=== PATIENT | female | born 1965 | race Caucasian/White ===

== ENCOUNTER 2017-07-03 14:26 | Inpatient (IN) | payer OTHER ==
[2017-07-03] MEDS ORDERED: IPRATROPIUM/ALBUTEROL 0.5-2.5 MG/3 ML AMPUL NEB ONE (15:52)
--- NOTE | 2017-07-03 15:53 | ER Document Report ---
ED Medical Screen (RME) - General Chief Complaint: Chest Pain Stated Complaint: CHEST PAIN Time Seen by Provider: 07/03/17 15:52 Mode of Arrival: Wheelchair Information source: Patient Notes: This is a 52-year-old female with a history of 1 pack per day smoking presents to the emergency room with several days of cough productive of brown sputum, low -grade fever, pain with cough. Patient states that her right chest hurts when she coughs. TRAVEL OUTSIDE OF THE [place] IN LAST 30 DAYS: No - Related Data Allergies/Adverse Reactions: No Known Allergies Allergy (Unverified 07/03/17 14:40) Past Medical History - Social History Chew tobacco use (# tins/day): No Frequency of alcohol use: Occasional Drug Abuse: None - Past Medical History Cardiac Medical History: Denies: Hx Coronary Artery Disease, Hx Hypertension Pulmonary Medical History: Denies: Hx Asthma Endocrine Medical History: Reports: Hx Hypothyroidism. Denies: Hx Diabetes Mellitus Type 1, Hx Diabetes Mellitus Type 2 Renal/ Medical History: Denies: Hx Peritoneal Dialysis Surgical Hx: Negative - Immunizations Hx Diphtheria, Pertussis, Tetanus Vaccination: Yes Physical Exam - Vital signs Vitals: Temp Pulse Resp BP Pulse Ox 99.6 F 80 24 H 103/55 L 94 07/03/17 14:39 07/03/17 14:39 07/03/17 14:39 07/03/17 14:39 07/03/17 14:39 Course - Vital Signs Vital signs: Temp Pulse Resp BP Pulse Ox 99.6 F 80 24 H 103/55 L 94 07/03/17 14:39 07/03/17 14:39 07/03/17 14:39 07/03/17 14:39 07/03/17 14:39
--- NOTE | 2017-07-03 16:18 | RADIOLOGY REPORT (SQ) ---
EXAM DESCRIPTION: CHEST PA/LAT COMPLETED DATE/TIME: 07/03/2017 4:11 pm REASON FOR STUDY: cough, sob COMPARISON: None. EXAM PARAMETERS: NUMBER OF VIEWS: two views TECHNIQUE: Digital Frontal and Lateral radiographic views of the chest acquired. RADIATION DOSE: NA LIMITATIONS: none FINDINGS: LUNGS AND PLEURA: No opacities, masses or pneumothorax. No pleural effusion. MEDIASTINUM AND HILAR STRUCTURES: No masses or contour abnormalities. HEART AND VASCULAR STRUCTURES: Heart normal size. No evidence for failure. BONES: No acute findings. HARDWARE: None in the chest. OTHER: No other significant finding. IMPRESSION: NO SIGNIFICANT RADIOGRAPHIC FINDING IN THE CHEST. TECHNICAL DOCUMENTATION: JOB ID: [id number] [employer]- All Rights Reserved
[2017-07-03 16:20] LABS: ABSOLUTE LYMPHOCYTES (AUTO) 1.1 10^3/uL (0.5-4.7); ABSOLUTE MONOCYTES (AUTO) 0.6 10^3/uL (0.1-1.4); BASOPHILS % (AUTO) 0.2 % (0-2); HEMATOCRIT 37.5 % (36.0-47.0); HEMOGLOBIN 13.2 g/dL (12.0-15.5); HGB HCT DIFFERENCE 2.1; LYMPHOCYTES % (AUTO) 6.7 % (13-45); MEAN CORPUSCULAR HEMOGLOBIN 32.4 pg (27.0-33.4); MEAN CORPUSCULAR HGB CONC 35.3 g/dL (32.0-36.0); MEAN CORPUSCULAR VOLUME 92 fl (80-97); MONOCYTES % (AUTO) 3.8 % (3-13); RED BLOOD COUNT 4.08 10^6/uL (3.72-5.28); RED CELL DISTRIBUTION WIDTH 13.2 % (11.5-14.0); SEGMENTED NEUTROPHILS % (AUTO) 89.3 % (42-78); WHITE BLOOD COUNT 15.7 10^3/uL (4.0-10.5)
[2017-07-03 16:45] LABS: ALANINE AMINOTRANSFERASE 25 U/L (9-52); ALBUMIN 4.5 g/dL (3.5-5.0); ALKALINE PHOSPHATASE 88 U/L (38-126); ANION GAP 11 (5-19); ASPARTATE AMINO TRANSFERASE 19 U/L (14-36); BILIRUBIN,DIRECT 0.4 mg/dL (0.0-0.4); BLOOD UREA NITROGEN 15 mg/dL (7-20); CALCIUM 10.1 mg/dL (8.4-10.2); CARBON DIOXIDE 25 mmol/L (22-30); CHLORIDE 103 mmol/L (98-107); CREATININE RESULT 0.76 mg/dL (0.52-1.25); GLUCOSE 99 mg/dL (75-110); POTASSIUM 4.2 mmol/L (3.6-5.0); SODIUM 139.4 mmol/L (137-145); TOTAL PROTEIN 7.3 g/dL (6.3-8.2)
[2017-07-03] MEDS ORDERED: AZITHROMYCIN 250 MG TABLET PO ONE (17:39)
[2017-07-03] MEDS ORDERED: ALBUTEROL SULFATE HFA (90 MCG/PUFF) 8 GM MDI (1 MDI/ER DISP) IH PRN (17:40)
[2017-07-03] MEDS ORDERED: OXYCODONE-ACETAMINOPHEN 5-325 MG TABLET PO ONE (17:40)
[2017-07-03] MEDS ORDERED: PREDNISONE 20 MG TABLET PO ONE (17:40)
[2017-07-03] MEDS ORDERED: CEFTRIAXONE 1 GM/D5W RTU 1 GM/50 ML RTUPB IV ONE (17:49)
[2017-07-03] MEDS ORDERED: AZITHROMYCIN INJ 500 MG VIAL IV ONE (17:51)
[2017-07-03] MEDS ORDERED: GUAIFENESIN 600 MG TABLET.SA PO ONE (17:51)
[2017-07-03] MEDS ORDERED: METHYLPREDNISOLONE INJ 125 MG/2 ML SDV IV ONE (17:51)
--- NOTE | 2017-07-03 17:58 | ER Document Report ---
ED General - General Chief Complaint: Chest Pain Stated Complaint: CHEST PAIN Time Seen by Provider: 07/03/17 15:52 Mode of Arrival: Wheelchair Information source: Patient Notes: This is a 52-year-old female with a history of 1 pack per day smoking for years who presents to the emergency room with cough, shortness of breath, chest pain with cough. She has have a productive cough, chills and subjective fevers. TRAVEL OUTSIDE OF THE [place] IN LAST 30 DAYS: No - HPI Onset: Last week Onset/Duration: Gradual Quality of pain: Dull Severity: Moderate Pain Level: 2 Associated symptoms: Chills, Productive cough, Fever, Nausea Exacerbated by: Movement, Coughing Relieved by: Remaining still Similar symptoms previously: Yes Recently seen / treated by doctor: No - Related Data Allergies/Adverse Reactions: No Known Allergies Allergy (Unverified 07/03/17 14:40) Home Medications: Current Home Medications Zolpidem Tartrate [Ambien 5 mg Tablet] 5 mg PO HSP PRN 07/03/17 [History] Past Medical History - General Information source: Patient - Social History Smoking Status: Current Every Day Smoker Cigarette use (# per day): Yes - 1 pack per day smoker Chew tobacco use (# tins/day): No Smoking Education Provided: Yes - Less than 5 minutes Frequency of alcohol use: Occasional Drug Abuse: None Lives with: Family Family History: Reviewed & Not Pertinent Patient has suicidal ideation: No Patient has homicidal ideation: No - Past Medical History Cardiac Medical History: Denies: Hx Coronary Artery Disease, Hx Hypertension Pulmonary Medical History: Denies: Hx Asthma Endocrine Medical History: Reports: Hx Hypothyroidism. Denies: Hx Diabetes Mellitus Type 1, Hx Diabetes Mellitus Type 2 Renal/ Medical History: Denies: Hx Peritoneal Dialysis Surgical Hx: Negative - Immunizations Hx Diphtheria, Pertussis, Tetanus Vaccination: Yes Review of Systems - Review of Systems Constitutional: Chills, Fever EENT: No symptoms reported Cardiovascular: No symptoms reported Respiratory: See HPI, Cough, Short of breath Gastrointestinal: No symptoms reported Genitourinary: No symptoms reported Female Genitourinary: No symptoms reported Musculoskeletal: See HPI Skin: No symptoms reported Hematologic/Lymphatic: No symptoms reported Neurological/Psychological: No symptoms reported Physical Exam - Vital signs Vitals: Temp Pulse Resp BP Pulse Ox 99.6 F 80 24 H 103/55 L 94 07/03/17 14:39 07/03/17 14:39 07/03/17 14:39 07/03/17 14:39 07/03/17 14:39 Notes: Physical exam: GENERAL: 52-year-old female, alert and oriented 3, appears short of breath, wheezing, she splints when she coughs (she holds her right chest wall when she coughs). HEAD: Atraumatic, normocephalic. EYES: Pupils equal round and reactive to light, extraocular movements intact, sclera anicteric, conjunctiva are normal. ENT: TMs normal, nares patent, oropharynx clear without exudates. Moist mucous membranes. NECK: Normal range of motion, supple without obvious mass or JVD. LUNGS: Wheezing bilaterally HEART: Regular rate and rhythm without murmurs, rubs or gallops. ABDOMEN: Soft, normoactive bowel sounds. No tenderness to palpation. No guarding, no rebound. No masses appreciated. EXTREMITIES: Normal range of motion, no pitting or edema. No clubbing or cyanosis. NEUROLOGICAL: Cranial nerves II through XII grossly intact. Normal speech, moving all extremities. PSYCH: Normal mood, normal affect. SKIN: Warm, Dry, normal turgor, no rashes or lesions noted. Course - Re-evaluation Re-evalutation: 07/03/17 20:07 Given the patient's clinical appearance, elevated white count, productive cough and x-ray findings I do believe she has got a right lower lobe pneumonia. I gave her a few nebulizer treatments in the ER and she had minimal relief. I think she would benefit with IV antibiotics, IV steroids, IV fluids and admission. - Vital Signs Vital signs: Temp Pulse Resp BP Pulse Ox 99.6 F 80 24 H 103/55 L 94 07/03/17 14:39 07/03/17 14:39 07/03/17 14:39 07/03/17 14:39 07/03/17 14:39 - Laboratory Result Diagrams: 07/03/17 16:02 07/03/17 16:02 Laboratory results interpreted by me: 07/03/17 16:02 WBC 15.7 H Seg Neutrophils % 89.3 H Lymphocytes % 6.7 L Absolute Neutrophils 14.0 H - Diagnostic Test Radiology reviewed: Image reviewed, Reports reviewed - Chest x-ray is read as no infiltrates by the radiologist. I think the lungs are hyperinflated consistent with COPD. I think she does have the beginnings of an infiltrate in the right lower lobe. Discharge - Discharge Clinical Impression: COPD (chronic obstructive pulmonary disease) Qualifiers: COPD type: COPD with acute exacerbation Qualified Code(s): J44.1 - Chronic obstructive pulmonary disease with (acute) exacerbation Pneumonia Qualifiers: Laterality: right Condition: Stable Disposition: ADMITTED INPATIENT Admitting Provider: Hospitalist Mesha lopes Unit Admitted: Medical Floor
[2017-07-03] MEDS ORDERED: ONDANSETRON HCL INJ/PF 4 MG/2 ML SDV IV PRN (18:09)
[2017-07-03] MEDS ORDERED: OXYCODONE-ACETAMINOPHEN 5-325 MG TABLET PO PRN (18:09)
[2017-07-03] MEDS ORDERED: ACETAMINOPHEN 325 MG TABLET PO PRN (18:09)
[2017-07-03] MEDS ORDERED: ONDANSETRON 4 MG TAB.RAPDIS PO PRN (18:09)
[2017-07-03] MEDS ORDERED: ALBUTEROL SULFATE 0.083% NEB 2.5 MG/3 ML AMPUL NEB PRN (18:09)
--- NOTE | 2017-07-03 18:33 | PDOC H&P ---
History of Present Illness Admission Date/PCP: CJ SALDÑAA MD Patient complains of: Shortness of breath and right-sided chest pain. History of Present Illness: RAY MAYO is a 52 year old female who is a chronic smoker COPD who presents with a cough productive of some brown sputum, fever, right sided pleuritic chest pain. The patient reports that she started having symptoms this morning with a productive cough. She also has had some low-grade fevers. She has had worsening shortness of breath and wheezing. Patient reports that when she coughs she has right sided chest wall pain. She does not have this pain except when she coughs. She denies any swelling in her legs. She denies any orthopnea or PND. She denies any recent immobility. Denies any recent travel. She does smoke between one half and 1 pack per day of cigarettes. She denies any palpitations or tachycardia. She works as a nurse at [employer]. Past Medical History Cardiac Medical History: Denies: Coronary Artery Disease, Hypertension Pulmonary Medical History: Reports: Chronic Obstructive Pulmonary Disease (COPD) Denies: Asthma EENT Medical History: Reports: None Neurological Medical History: Reports: None Endocrine Medical History: Reports: Hypothyroidism - Does not currently take any medications. Denies: Diabetes Mellitus Type 1, Diabetes Mellitus Type 2 Renal/ Medical History: Reports: None Malignancy Medical History: Reports: None GI Medical History: Reports: None Musculoskeltal Medical History: Reports: None Skin Medical History: Reports: None Psychiatric Medical History: Reports: None Traumatic Medical History: Reports: None Hematology: Reports: None Infectious Medical History: Reports: None Past Surgical History Past Surgical History: Reports: Tubal Ligation Social History Information Source: Patient Lives with: Family Smoking Status: Current Every Day Smoker Frequency of Alcohol Use: Rare Hx Recreational Drug Use: No Drugs: None Hx Prescription Drug Abuse: No - Advance Directive Resuscitation Status: Full Code Family History Family History: Mother at age 72. She had a CVA, COPD and peripheral vascular disease. Father at 75 from bladder cancer. Parental Family History Reviewed: Yes Children Family History Reviewed: No Sibling(s) Family History Reviewed.: No Medication/Allergy Home Medications: Hydrocodone Bit/Acetaminophen [Vicodin 5-500 mg Tablet] 1 - 2 tab PO ASDIR PRN # 15 tablet 08/09/12 Levothyroxine Sodium [Synthroid 50 Mcg Tablet] 50 mcg PO DAILY 08/09/12 Allergies/Adverse Reactions: No Known Allergies Allergy (Unverified 07/03/17 14:40) Review of Systems Constitutional: PRESENT: fever(s). ABSENT: chills, headache(s), weight gain, weight loss Eyes: ABSENT: visual disturbances Ears: ABSENT: hearing changes Cardiovascular: PRESENT: chest pain - Right sided made worse by coughing.. ABSENT: dyspnea on exertion, edema, orthropnea, palpitations Respiratory: PRESENT: as per HPI, cough, dyspnea, sputum. ABSENT: hemoptysis Gastrointestinal: ABSENT: abdominal pain, constipation, diarrhea, hematemesis, hematochezia, nausea, vomiting Genitourinary: ABSENT: dysuria, hematuria Musculoskeletal: ABSENT: joint swelling Integumentary: ABSENT: rash, wounds Neurological: ABSENT: abnormal gait, abnormal speech, confusion, dizziness, focal weakness, syncope Psychiatric: ABSENT: anxiety, depression Endocrine: ABSENT: cold intolerance, heat intolerance, polydipsia, polyuria Hematologic/Lymphatic: ABSENT: easy bleeding, easy bruising Physical Exam Vital Signs: Temp Pulse Resp BP Pulse Ox 99.6 F 80 24 H 103/55 L 94 07/03/17 14:39 07/03/17 14:39 07/03/17 14:39 07/03/17 14:39 07/03/17 14:39 Intake & Output 07/02/17 07/03/17 07/04/17 06:59 06:59 06:59 Weight 45.1 kg General appearance: PRESENT: no acute distress, well-developed, well-nourished Head exam: PRESENT: atraumatic, normocephalic Eye exam: PRESENT: conjunctiva pink, EOMI, PERRLA. ABSENT: scleral icterus Ear exam: PRESENT: normal external ear exam Mouth exam: PRESENT: moist, tongue midline Neck exam: ABSENT: carotid bruit, JVD, lymphadenopathy, thyromegaly Respiratory exam: PRESENT: wheezes - Bilateral expiratory wheezes. ABSENT: rales, rhonchi Cardiovascular exam: PRESENT: RRR. ABSENT: diastolic murmur, rubs, systolic murmur Pulses: PRESENT: normal dorsalis pedis pul Vascular exam: PRESENT: normal capillary refill GI/Abdominal exam: PRESENT: normal bowel sounds, soft. ABSENT: distended, guarding, mass, organolmegaly, rebound, tenderness Rectal exam: PRESENT: deferred Extremities exam: ABSENT: calf tenderness, clubbing, pedal edema Neurological exam: PRESENT: alert, awake, oriented to person, oriented to place , oriented to time, oriented to situation, CN II-XII grossly intact. ABSENT: motor sensory deficit Psychiatric exam: PRESENT: appropriate affect Skin exam: PRESENT: dry, intact, warm. ABSENT: cyanosis, rash Results Laboratory Results: 07/03/17 16:02 07/03/17 16:02 07/03/17 07/03/17 16:02 16:02 WBC 15.7 H RBC 4.08 Hgb 13.2 Hct 37.5 MCV 92 MCH 32.4 MCHC 35.3 RDW 13.2 Plt Count 214 Seg Neutrophils % 89.3 H Lymphocytes % 6.7 L Monocytes % 3.8 Eosinophils % 0.0 Basophils % 0.2 Absolute Neutrophils 14.0 H Absolute Lymphocytes 1.1 Absolute Monocytes 0.6 Absolute Eosinophils 0.0 Absolute Basophils 0.0 Sodium 139.4 Potassium 4.2 Chloride 103 Carbon Dioxide 25 Anion Gap 11 BUN 15 Creatinine 0.76 Est GFR ( Amer) > 60 Est GFR (Non-Af Amer) > 60 Glucose 99 Calcium 10.1 Total Bilirubin 1.0 AST 19 ALT 25 Alkaline Phosphatase 88 Total Protein 7.3 Albumin 4.5 Impressions: Chest X-Ray 07/03/17 15:52 IMPRESSION: NO SIGNIFICANT RADIOGRAPHIC FINDING IN THE CHEST. Assessment & Plan - Diagnosis (1) COPD (chronic obstructive pulmonary disease) Qualifiers: COPD type: COPD with acute exacerbation Qualified Code(s): J44.1 - Chronic obstructive pulmonary disease with (acute) exacerbation Is this a current diagnosis for this admission?: Yes Plan: Patient has acute COPD. Patient may also have bronchitis versus early pneumonia. Will give IV Rocephin and Zithromax for the infectious component. Will give IV Solu-Medrol for the COPD exacerbation. Will also give nebulizers. Patient is a smoker and she is encouraged to quit smoking. Given her chest pain the possibility of a pulmonary embolism is considered although it is considered unlikely given the fact that she has no lower extremity edema. She has not had any prolonged immobility. Her only risk factor for blood clots is her smoking and female gender. Her pain is only associated with coughing and most likely is musculoskeletal in nature. (2) Pneumonia Qualifiers: Laterality: right Is this a current diagnosis for this admission?: Yes Plan: It is not clear whether she has bronchitis or early pneumonia. Will cover with Rocephin and Zithromax. Blood and sputum cultures have been ordered. - Time Time Spent: 50 to 70 Minutes - Inpatient Certification Medical Necessity: Need for IV Antibiotics
[2017-07-03] MEDS ORDERED: ENOXAPARIN SODIUM INJ 40 MG/0.4 ML DISP.SYRIN SUBCUT ONE ×2 (19:30→22:45)
[2017-07-03] MEDS: IPRATROPIUM/ALBUTEROL 0.5-2.5 MG/3 ML AMPUL NEB SCH (20:41)
[2017-07-03] MEDS: FAMOTIDINE 20 MG TABLET PO SCH (22:50)
[2017-07-03] MEDS: METHYLPREDNISOLONE INJ 40 MG/1 ML SDV IV SCH (22:51)
[2017-07-04] MEDS: IPRATROPIUM/ALBUTEROL 0.5-2.5 MG/3 ML AMPUL NEB SCH ×2 (02:15→07:31)
--- NOTE | 2017-07-04 04:46 | EKG REPORT ---
SEVERITY:- ABNORMAL ECG - SINUS RHYTHM INCOMPLETE RIGHT BUNDLE BRANCH BLOCK : Confirmed by: Francia Herrera MD 04-Jul-2017 04:26:50
[2017-07-04] MEDS: METHYLPREDNISOLONE INJ 40 MG/1 ML SDV IV SCH (05:19)
[2017-07-04 05:37] LABS: HEMATOCRIT 34.4 % (36.0-47.0); HEMOGLOBIN 12.3 g/dL (12.0-15.5); HGB HCT DIFFERENCE 2.5; MEAN CORPUSCULAR HEMOGLOBIN 33.1 pg (27.0-33.4); MEAN CORPUSCULAR HGB CONC 35.7 g/dL (32.0-36.0); MEAN CORPUSCULAR VOLUME 93 fl (80-97); RED CELL DISTRIBUTION WIDTH 13.4 % (11.5-14.0); WHITE BLOOD COUNT 10.8 10^3/uL (4.0-10.5)
[2017-07-04 05:54] LABS: ANION GAP 14 (5-19); BLOOD UREA NITROGEN 11 mg/dL (7-20); CALCIUM 10.3 mg/dL (8.4-10.2); CARBON DIOXIDE 20 mmol/L (22-30); CHLORIDE 104 mmol/L (98-107); CREATININE RESULT 0.62 mg/dL (0.52-1.25); GLUCOSE 209 mg/dL (75-110); POTASSIUM 3.6 mmol/L (3.6-5.0); SODIUM 138.1 mmol/L (137-145)
[2017-07-04 06:31] LABS: BAND NEUTROPHILS % (MANUAL) 1 % (3-5); BASOPHILS % (MANUAL) 0 % (0-2); EOSINOPHILS % (MANUAL) 0 % (0-6); LYMPHOCYTES % (MANUAL) 5 % (13-45); TOTAL CELLS COUNTED 100
[2017-07-04 06:32] LABS: ANISOCYTOSIS SLIGHT; OVALOCYTES SLIGHT; TOXIC GRANULATION SLIGHT
[2017-07-04 06:33] LABS: POIKILOCYTOSIS SLIGHT
[2017-07-04 09:15] VITALS: BP 111/84
[2017-07-04] MEDS ORDERED: ENOXAPARIN SODIUM INJ 40 MG/0.4 ML DISP.SYRIN SUBCUT SCH (10:00)
[2017-07-04] MEDS: FAMOTIDINE 20 MG TABLET PO SCH (10:11)
--- NOTE | 2017-07-04 16:55 | PDOC DISCHARGE SUMMARY ---
General - Admit/Disc Date/PCP Admission Date/Primary Care Provider: 07/03/17 18:09 CJ SALDAÑA MD Discharge Date: 07/04/17 - Discharge Diagnosis (1) COPD (chronic obstructive pulmonary disease) Is this a current diagnosis for this admission?: Yes (2) Pneumonia Is this a current diagnosis for this admission?: Yes - Additional Information Resuscitation Status: Full Code Discharge Diet: Regular Discharge Activity: Activity As Tolerated Home Medications: Zolpidem Tartrate [Ambien 5 mg Tablet] 5 mg PO HSP PRN 07/03/17 Albuterol Sulfate [Ventolin Hfa 8 gm Mdi (1 Mdi/ER Disp)] 2 puff IH Q6HP PRN #1 inhaler 07/04/17 Azithromycin [Zithromax] 250 mg PO DAILY #5 tablet 07/04/17 Cefuroxime Axetil [Ceftin 500 mg Tablet] 1 tab PO BID #14 tablet 07/04/17 Oxycodone HCl/Acetaminophen [Percocet 5-325 mg Tablet] 1 tab PO Q4HP PRN #14 tablet 07/04/17 Prednisone 10 mg PO DAILY #39 tablet 07/04/17 History of Present Illness History of Present Illness: RAY MAYO is a 52 year old female who is a chronic smoker COPD who presents with a cough productive of some brown sputum, fever, right sided pleuritic chest pain. The patient reports that she started having symptoms this morning with a productive cough. She also has had some low-grade fevers. She has had worsening shortness of breath and wheezing. Patient reports that when she coughs she has right sided chest wall pain. She does not have this pain except when she coughs. She denies any swelling in her legs. She denies any orthopnea or PND. She denies any recent immobility. Denies any recent travel. She does smoke between one half and 1 pack per day of cigarettes. She denies any palpitations or tachycardia. She works as a nurse at [employer]. Hospital Course Hospital Course: 52-year-old female admitted with an acute COPD exacerbation and possible pneumonia. The patient had right-sided pleuritic chest pain also. She was started on Ceftin and Zithromax. She also was given IV steroids. She had a recovery that happened much quicker than expected. On the next day she no longer had any wheezing and her pain has resolved as well as her shortness of breath. This felt that she can be treated as an outpatient with a steroid taper as well as antibiotics. She is encouraged to quit smoking. Physical Exam Vital Signs: Temp Pulse Resp BP Pulse Ox 98.4 F 64 16 100/58 L 93 07/04/17 08:51 07/04/17 08:51 07/04/17 08:51 07/04/17 08:51 07/04/17 08:51 Intake & Output 07/03/17 07/04/17 07/05/17 06:59 06:59 06:59 Intake Total 520 0 Balance 520 0 Weight 45.7 kg General appearance: PRESENT: no acute distress Eye exam: PRESENT: conjunctiva pink. ABSENT: scleral icterus Ear exam: PRESENT: normal external ear exam Mouth exam: PRESENT: moist, tongue midline Neck exam: ABSENT: JVD Respiratory exam: PRESENT: clear to auscultation melania. ABSENT: rales, rhonchi, wheezes Cardiovascular exam: PRESENT: RRR. ABSENT: diastolic murmur, rubs, systolic murmur GI/Abdominal exam: PRESENT: normal bowel sounds, soft. ABSENT: distended, guarding, mass, organolmegaly, rebound, tenderness Extremities exam: ABSENT: calf tenderness, clubbing, pedal edema Neurological exam: PRESENT: alert, awake, oriented to person, oriented to place , oriented to time, oriented to situation, CN II-XII grossly intact. ABSENT: motor sensory deficit Psychiatric exam: PRESENT: appropriate affect Skin exam: PRESENT: dry, intact, warm. ABSENT: cyanosis, rash Results Laboratory Results: 07/04/17 04:20 07/04/17 04:20 07/04/17 07/04/17 04:20 04:20 WBC 10.8 H RBC 3.70 L Hgb 12.3 Hct 34.4 L MCV 93 MCH 33.1 MCHC 35.7 RDW 13.4 Plt Count 155 Seg Neutrophils % Not Reportable Lymphocytes % Not Reportable Monocytes % Not Reportable Eosinophils % Not Reportable Basophils % Not Reportable Absolute Neutrophils Not Reportable Absolute Lymphocytes Not Reportable Absolute Monocytes Not Reportable Absolute Eosinophils Not Reportable Absolute Basophils Not Reportable Sodium 138.1 Potassium 3.6 Chloride 104 Carbon Dioxide 20 L Anion Gap 14 BUN 11 Creatinine 0.62 Est GFR ( Amer) > 60 Est GFR (Non-Af Amer) > 60 Glucose 209 H Calcium 10.3 H Impressions: Chest X-Ray 07/03/17 15:52 IMPRESSION: NO SIGNIFICANT RADIOGRAPHIC FINDING IN THE CHEST. Qualifiers PATEINT BEING DISCHARGED WITH ANY OF THE FOLLOWING DIAGNOSIS?: No Plan Discharge Plan: Patient is discharged home in stable condition. Follow-up primary care in 2 weeks Time Spent: Less than 30 Minutes
[2017-07-04] MEDS ORDERED: CEFTRIAXONE 1 GM/D5W RTU 1 GM/50 ML RTUPB IV SCH (20:00)
[2017-07-04] MEDS ORDERED: AZITHROMYCIN 500 MG in DEXTROSE 5%-WATER 250 ML IV SCH (22:00)
== END 2017-07-04 10:28 | disposition home or self-care (01) | DRG 190 ==
LOC: ER 14:26 → EH 18:09 → UNDOADMIN 18:23 → EH 18:23 → 5 20:20
PROC: 3E0F73Z Introduction of Anti-inflammatory into Respiratory Tract, Via Natural or Artificial Opening (ICD-10-PCS; principal; 2017-07-03)
DX: J44.1 Chronic obstructive pulmonary disease with (acute) exacerbation (principal); J18.9 Pneumonia, unspecified organism; J44.0 Chronic obstructive pulmonary disease with (acute) lower respiratory infection; F17.210 Nicotine dependence, cigarettes, uncomplicated; E03.9 Hypothyroidism, unspecified; Z79.899 Other long term (current) drug therapy; Z82.3 Family history of stroke; Z80.52 Family history of malignant neoplasm of bladder; Z83.6 Family history of other diseases of the respiratory system
CPT/HCPCS: 36415; 71020; 80048; 80053; 85025; 87040; 93005; 93010; 94640; 99285; 99406; J0456; J0696; J1650; J2920; J2930; J3490; J7620

== ENCOUNTER 2018-08-31 10:01 | Observation (INO) | payer OTHER ==
[2018-08-31] MEDS ORDERED: NORMAL SALINE 1000 ML 1,000 ML IV ONE (10:25)
--- NOTE | 2018-08-31 10:26 | ER Document Report ---
ED Medical Screen (RME) - General Chief Complaint: Dizziness Stated Complaint: FACIAL/HAND TINGLING Time Seen by Provider: 08/31/18 10:22 Notes: 53 years old female presents today with feeling lightheaded and dizzy since this morning. She cannot explain the sensation very clearly, what I gathered is that she is having dizziness. She denies any ringing sensation in the year. Denies any focal weakness, but has tingling sensation of both hands. Denies any fever chills earache sore throat cough chest pain shortness of breath. Denies any dysuria frequency or urgency. Denies any nausea vomiting abdominal pain. Recently started Wellbutrin 150 mg daily, has taken for 3 days now. For her anxiety and smoking habit. History of COPD. Examination right lateral nystagmus noted. TRAVEL OUTSIDE OF THE [place] IN LAST 30 DAYS: No - Related Data Allergies/Adverse Reactions: No Known Allergies Allergy (Verified 08/31/18 10:03) Past Medical History - Past Medical History Cardiac Medical History: Denies: Hx Coronary Artery Disease, Hx Hypertension Pulmonary Medical History: Reports: Hx COPD Denies: Hx Asthma Endocrine Medical History: Reports: Hx Hypothyroidism. Denies: Hx Diabetes Mellitus Type 1, Hx Diabetes Mellitus Type 2 Renal/ Medical History: Denies: Hx Peritoneal Dialysis Past Surgical History: Reports: Hx Tubal Ligation - Immunizations Hx Diphtheria, Pertussis, Tetanus Vaccination: Yes History of Influenza Vaccine for 07/2017 - 11/2017 Season: No Physical Exam - Vital signs Vitals: Pulse Resp BP Pulse Ox 66 18 139/70 H 98 08/31/18 10:10 08/31/18 10:10 08/31/18 10:10 08/31/18 10:10 Course - Vital Signs Vital signs: Temp Pulse Resp BP Pulse Ox 66 18 139/70 H 98 08/31/18 10:10 08/31/18 10:10 08/31/18 10:10 08/31/18 10:10 Doctor's Discharge - Discharge Referrals: CJ SALDAÑA MD [Primary Care Provider] - Follow up as needed
--- NOTE | 2018-08-31 11:19 | RADIOLOGY REPORT (SQ) ---
EXAM DESCRIPTION: CT HEAD WITHOUT COMPLETED DATE/TIME: 08/31/2018 10:57 am REASON FOR STUDY: Dizziness COMPARISON: None. TECHNIQUE: Axial images acquired through the brain without intravenous contrast. Images reviewed wi th bone, brain and subdural windows. Additional sagittal and coronal reconstructions were generated. Images stored on PACS. All CT scanners at this facility use dose modulation, iterative reconstruction, and/or weight based d osing when appropriate to reduce radiation dose to as low as reasonably achievable (ALARA). [facility]: Dose Right [facility]: CareDose [facility]: Dose Right [facility]: Teradose 4D [facility]: [facility] RADIATION DOSE: CT Rad equipment meets quality standard of care and radiation dose reduction techniq ues were employed. CTDIvol: 53.2 mGy. DLP: 911 mGy-cm. mGy. LIMITATIONS: None. FINDINGS: VENTRICLES: Normal size and contour. CEREBRUM: No masses. No hemorrhage. No midline shift. No evidence for acute infarction. Normal gra y/white matter differentiation. No areas of low density in the white matter. CEREBELLUM: No masses. No hemorrhage. No alteration of density. No evidence for acute infarction. EXTRAAXIAL SPACES: No fluid collections. No masses. ORBITS AND GLOBE: No intra- or extraconal masses. Normal contour of globe without masses. CALVARIUM: No fracture. PARANASAL SINUSES: No fluid or mucosal thickening. SOFT TISSUES: No mass or hematoma. OTHER: No other significant finding. IMPRESSION: NORMAL BRAIN CT WITHOUT CONTRAST. EVIDENCE OF ACUTE STROKE: NO. COMMENT: Quality ID # [id number]: Final reports with documentation of one or more dose reduction techniques (e.g., Automated exposure control, adjustment of the mA and/or kV according to patient size, use of iterative reconstruction technique) TECHNICAL DOCUMENTATION: JOB ID: [id number] [employer]- All Rights Reserved Reading location - IP/workstation name: [email or web address]
[2018-08-31 11:45] LABS: ABSOLUTE EOSINOPHILS # (AUTO) 0.1 10^3/uL (0.0-0.6); ABSOLUTE LYMPHOCYTES (AUTO) 0.9 10^3/uL (0.5-4.7); ABSOLUTE MONOCYTES (AUTO) 0.6 10^3/uL (0.1-1.4); ABSOLUTE NEUT (AUTO) 2.4 10^3/uL (1.7-8.2); BASOPHILS % (AUTO) 1.2 % (0-2); EOSINOPHILS % (AUTO) 2.6 % (0-6); HEMATOCRIT 34.1 % (36.0-47.0); HEMOGLOBIN 11.9 g/dL (12.0-15.5); LYMPHOCYTES % (AUTO) 23.1 % (13-45); MEAN CORPUSCULAR HEMOGLOBIN 31.8 pg (27.0-33.4); MEAN CORPUSCULAR HGB CONC 34.9 g/dL (32.0-36.0); MEAN CORPUSCULAR VOLUME 91 fl (80-97); MONOCYTES % (AUTO) 14.9 % (3-13); PLATELET COUNT 218 10^3/uL (150-450); RED BLOOD COUNT 3.73 10^6/uL (3.72-5.28); RED CELL DISTRIBUTION WIDTH 13.3 % (11.5-14.0); SEGMENTED NEUTROPHILS % (AUTO) 58.2 % (42-78); TOTAL CELLS COUNTED % (AUTO) 100 %; WHITE BLOOD COUNT 4.1 10^3/uL (4.0-10.5)
[2018-08-31 12:04] LABS: ALANINE AMINOTRANSFERASE 21 U/L (9-52); ALBUMIN 3.8 g/dL (3.5-5.0); ALKALINE PHOSPHATASE 96 U/L (38-126); ANION GAP 10 (5-19); ASPARTATE AMINO TRANSFERASE 26 U/L (14-36); BILIRUBIN,DIRECT 0.3 mg/dL (0.0-0.4); BILIRUBIN,TOTAL 0.5 mg/dL (0.2-1.3); BLOOD UREA NITROGEN 12 mg/dL (7-20); CALCIUM 9.7 mg/dL (8.4-10.2); CARBON DIOXIDE 26 mmol/L (22-30); CHLORIDE 105 mmol/L (98-107); GLUCOSE 96 mg/dL (75-110); POTASSIUM 4.6 mmol/L (3.6-5.0); SODIUM 141.2 mmol/L (137-145); TOTAL PROTEIN 6.7 g/dL (6.3-8.2)
--- NOTE | 2018-08-31 12:36 | ER Document Report ---
ED General - General Chief Complaint: Dizziness Stated Complaint: FACIAL/HAND TINGLING Time Seen by Provider: 08/31/18 10:22 Mode of Arrival: Ambulatory Information source: Patient Notes: This is a 53-year-old female who presents to the emergency room with left face, left upper extremity numbness and tingling lasting for about an hour. Patient states she awoke usual state of health at 545. 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 They were associated with weakness and a sense that she was going to collapse. Past medical history: Negative for hypertension, dyslipidemia, diabetes Family history: Significant for CVA and VT (mother in her 40s). Past surgical history: Bilateral tubal ligation, breast biopsy Medications: Wellbutrin, Ambien, MVI, Mucinex, Advil. Social: Positive for smoking (at least half a pack per day). TRAVEL OUTSIDE OF THE [place] IN LAST 30 DAYS: No - HPI Onset: Just prior to arrival Onset/Duration: Gradual Quality of pain: No pain Severity: None Pain Level: Denies Associated symptoms: denies: Chest pain, Fever, Shortness of breath Exacerbated by: Denies Relieved by: Denies Similar symptoms previously: No Recently seen / treated by doctor: No - Related Data Allergies/Adverse Reactions: No Known Allergies Allergy (Verified 08/31/18 10:03) Past Medical History - General Information source: Patient - Social History Smoking Status: Current Every Day Smoker Cigarette use (# per day): Yes - 1 pack/day Chew tobacco use (# tins/day): No Frequency of alcohol use: None Drug Abuse: None Lives with: Family Family History: Reviewed & Not Pertinent Patient has suicidal ideation: No Patient has homicidal ideation: No - Past Medical History Cardiac Medical History: Denies: Hx Coronary Artery Disease, Hx Hypertension Pulmonary Medical History: Reports: Hx COPD Denies: Hx Asthma Endocrine Medical History: Reports: Hx Hypothyroidism. Denies: Hx Diabetes Mellitus Type 1, Hx Diabetes Mellitus Type 2 Renal/ Medical History: Denies: Hx Peritoneal Dialysis Past Surgical History: Reports: Hx Tubal Ligation - Immunizations Hx Diphtheria, Pertussis, Tetanus Vaccination: Yes Review of Systems - Review of Systems Constitutional: denies: Chills, Fever EENT: No symptoms reported Cardiovascular: denies: Chest pain, Palpitations, Heart racing Respiratory: denies: Hemoptysis, Short of breath, Wheezing Gastrointestinal: No symptoms reported Genitourinary: No symptoms reported Female Genitourinary: No symptoms reported Musculoskeletal: No symptoms reported Skin: No symptoms reported Hematologic/Lymphatic: No symptoms reported Neurological/Psychological: See HPI Physical Exam - Vital signs Vitals: Pulse Resp BP Pulse Ox 66 18 139/70 H 98 08/31/18 10:10 08/31/18 10:10 08/31/18 10:10 08/31/18 10:10 Notes: Physical exam: GENERAL: Patient is alert and oriented x3, no acute distress HEAD: Atraumatic, normocephalic. EYES: Pupils equal round and reactive to light, extraocular movements intact, sclera anicteric, conjunctiva are normal. ENT: TMs normal, nares patent, oropharynx clear without exudates. Moist mucous membranes. NECK: Normal range of motion, supple without obvious mass or JVD. LUNGS: Breath sounds clear to auscultation bilaterally and equal. No wheezes rales or rhonchi. HEART: Regular rate and rhythm without murmurs, rubs or gallops. ABDOMEN: Soft, normoactive bowel sounds. No tenderness to palpation. No guarding, no rebound. No masses appreciated. EXTREMITIES: Normal range of motion, no pitting or edema. No clubbing or cyanosis. NEUROLOGICAL: Cranial nerves II through XII grossly intact. Motor 5/5, sensory grossly intact, cerebellar (finger to nose) good normal speech, moving all extremities. PSYCH: Normal mood, normal affect. SKIN: Warm, Dry, normal turgor, no rashes or lesions noted. Course - Vital Signs Vital signs: Temp Pulse Resp BP Pulse Ox 97.8 F 59 L 20 115/48 L 100 08/31/18 19:27 08/31/18 20:00 08/31/18 20:00 08/31/18 20:00 08/31/18 20:00 - Laboratory Result Diagrams: 08/31/18 11:20 08/31/18 11:20 Laboratory results interpreted by me: 08/31/18 08/31/18 11:20 12:40 Hgb 11.9 L Hct 34.1 L Monocytes % 14.9 H Urine Nitrite POSITIVE H Ur Leukocyte Esterase LARGE H - Diagnostic Test Radiology reviewed: Image reviewed, Reports reviewed - T of the head shows no acute process. Chest x-ray is clear - EKG Interpretation by Me Rate: Normal Rhythm: NSR - EKG shows sinus rhythm with a ventricular rate of 51, no acute ST- T wave changes Critical Care Note - Critical Care Note Total time excluding time spent on procedures (mins): 50 Discharge - Discharge Clinical Impression: TIA Condition: Stable Disposition: ADMITTED OBSERVATION Unit Admitted: CU
[2018-08-31] MEDS ORDERED: ASPIRIN 81 MG TABLET, CHEWABLE PO ONE (12:40)
[2018-08-31 13:05] LABS: APPEARANCE,URINE SLIGHTLY-CLOUDY; BILIRUBIN,URINE NEGATIVE (NEGATIVE); COLOR,URINE YELLOW; GLUCOSE, URINE NEGATIVE (NEGATIVE); KETONES,URINE NEGATIVE (NEGATIVE); LEUKOCYTE ESTERASE,URINE LARGE (NEGATIVE); NITRITE,URINE POSITIVE (NEGATIVE); PROTEIN,URINE NEGATIVE (NEGATIVE); URINE SPECIFIC GRAVITY 1.005; UROBILINOGEN,URINE NEGATIVE mg/dL (<2.0)
--- NOTE | 2018-08-31 13:16 | RADIOLOGY REPORT (SQ) ---
EXAM DESCRIPTION: CHEST 2 VIEWS COMPLETED DATE/TIME: 08/31/2018 1:07 pm REASON FOR STUDY: cough COMPARISON: 07/03/2017 EXAM PARAMETERS: NUMBER OF VIEWS: two views TECHNIQUE: Digital Frontal and Lateral radiographic views of the chest acquired. RADIATION DOSE: NA LIMITATIONS: none FINDINGS: LUNGS AND PLEURA: No opacities, masses or pneumothorax. No pleural effusion. MEDIASTINUM AND HILAR STRUCTURES: No masses or contour abnormalities. HEART AND VASCULAR STRUCTURES: Heart normal size. No evidence for failure. BONES: No acute findings. HARDWARE: None in the chest. OTHER: No other significant finding. IMPRESSION: NO ACUTE RADIOGRAPHIC FINDING IN THE CHEST. TECHNICAL DOCUMENTATION: JOB ID: [id number] [employer]- All Rights Reserved Reading location - IP/workstation name: [email or web address]
--- NOTE | 2018-08-31 13:17 | EKG REPORT ---
SEVERITY:- ABNORMAL ECG - SINUS RHYTHM INCOMPLETE RIGHT BUNDLE BRANCH BLOCK : Confirmed by: James Martin MD 31-Aug-2018 13:17:19
[2018-08-31] MEDS ORDERED: ACETAMINOPHEN 325 MG TABLET PO PRN (13:23)
--- NOTE | 2018-08-31 16:36 | RADIOLOGY REPORT (SQ) ---
EXAM DESCRIPTION: MR BRAIN WITHOUT IV CONTRAST COMPLETED DATE/TME: 08/31/2018 00:00 CLINICAL HISTORY: 53 years, Female, TIA COMPARISON: CT brain same date TECHNIQUE: 237 Images stored on PACS. LIMITATIONS: None. FINDINGS: Sagittal midline anatomic structures demonstrate an unremarkable appearance to the pituitary and suprasellar regions. The globes are intact. The paranasal sinuses and mastoid air cells are unremarkable normal flow void in the visualized intracranial vessels. The visualized cranial nerve complexes are unremarkable. There is no intra or extra-axial hemorrhage. Diffusion-weighted images are normal, without evidence for acute infarct. No evidence for mass or midline shift. The ventricles are symmetric. The oliva-white matter differentiation is preserved IMPRESSION: Unremarkable unenhanced MRI brain copyright 2010 [employer]- All Rights Reserved
--- NOTE | 2018-08-31 16:40 | PDOC H&P ---
History of Present Illness Admission Date/PCP: 08/31/18 12:47 Patient complains of: Left arm tingling and weakness, left face tingling History of Present Illness: RAY MAYO is a 53 year old female with a past medical history of COPD and tobacco use less than 1 ppd for a 35 year history. The patient stated that she was in her usual state of health until approximately 0900 when she was at work, begin her medication pass. The patient stated that she noted that the left side of her face begin to tingling and then went numb. She also noted that her left arm began tingling and felt numb, as well. The patient was brought to the ED where all symptoms had subsided. The patient denied any fever, chills, shortness of breath, chest pain, heart palpitations, nausea, vomiting or diarrhea. Patient stated that she felt dizzy, as if she were going to faint. The patient stated that she had a doctor's appointment for her yearly wellness check, that labs were drawn and reported back as "normal" and that he provider started her back on her Wellbutrin and began a multivitamin. In the ED, a head CT without contrast was obtained, which was negative. An EKG was obtained and showed a sinus rhythm with incomplete right bundle branch block , which also showed on an EKG obtained in 2017. 324 mg PO aspirin given. Patient was also given 1L NS bolus. Patient's case was referred to the hospitalist service for further workup and evaluation. Patient will be placed under observations status. Past Medical History Cardiac Medical History: Reports: None Pulmonary Medical History: Reports: Chronic Obstructive Pulmonary Disease (COPD) , Pneumonia Endocrine Medical History: Reports: Hypothyroidism Past Surgical History Past Surgical History: Reports: Tubal Ligation Social History Information Source: Patient Lives with: Spouse/Significant other Smoking Status: Current Every Day Smoker Cigarettes Packs Per Day: 1 - Less than 1 ppd Number of Years Smokin Last Time Smoked: 08/31/18 Frequency of Alcohol Use: Occasional Hx Recreational Drug Use: No Drugs: None Hx Prescription Drug Abuse: No - Advance Directive Resuscitation Status: Full Code Family History Parental Family History Reviewed: Yes Children Family History Reviewed: Yes Sibling(s) Family History Reviewed.: Yes Medication/Allergy Home Medications: Zolpidem Tartrate [Ambien] 10 mg PO QHS 08/31/18 Allergies/Adverse Reactions: No Known Allergies Allergy (Verified 08/31/18 10:03) Review of Systems Constitutional: ABSENT: chills, fatigue, fever(s), headache(s), weakness Eyes: ABSENT: visual disturbances Ears: ABSENT: hearing changes Nose, Mouth, and Throat: PRESENT: vertigo - possible Cardiovascular: ABSENT: chest pain, dyspnea on exertion, edema, orthropnea, palpitations Respiratory: ABSENT: cough, dyspnea, hemoptysis, sputum Gastrointestinal: ABSENT: abdominal pain, bloating, diarrhea, melena, nausea, vomiting Genitourinary: ABSENT: difficulty urinating, dysuria, hematuria Musculoskeletal: PRESENT: muscle weakness - Earlier today Integumentary: ABSENT: diaphoresis Neurological: PRESENT: dizziness - Patient reports dizziness if she is moved too fast or is she moves to fast., numbness - Complaines of left sided facial numbness and left hand numbness., tingling - Complains of tingling to left face and left fingertips., vertigo. ABSENT: abnormal gait Psychiatric: PRESENT: depression Endocrine: ABSENT: polyuria Hematologic/Lymphatic: ABSENT: easy bleeding Physical Exam Vital Signs: Temp Pulse Resp BP Pulse Ox 66 18 139/70 H 98 08/31/18 10:10 08/31/18 10:10 08/31/18 10:10 08/31/18 10:10 General appearance: PRESENT: no acute distress, cooperative Head exam: PRESENT: atraumatic, normocephalic Eye exam: PRESENT: conjunctiva pink, EOMI, PERRLA, scleral icterus Ear exam: PRESENT: normal external ear exam Mouth exam: PRESENT: moist, neck supple, tongue midline, other - Slight left sided mouth droop noted at rest. Smile is equal. Teeth exam: PRESENT: dental caries Neck exam: PRESENT: full ROM Respiratory exam: PRESENT: clear to auscultation melania, symmetrical Cardiovascular exam: PRESENT: +S1, +S2, other - Sinus rhythm Pulses: PRESENT: normal radial pulses, +2 pedal pulses bilateral Vascular exam: PRESENT: normal capillary refill GI/Abdominal exam: PRESENT: soft, other - round and non-tender. No organolmegaly. Rectal exam: PRESENT: deferred Extremities exam: PRESENT: full ROM Musculoskeletal exam: PRESENT: full ROM, normal inspection Neurological exam: PRESENT: alert, awake, oriented to person, oriented to place , oriented to time, oriented to situation Psychiatric exam: PRESENT: agitated - Somewhat irritable, but cooperative. Skin exam: PRESENT: dry, warm Results Laboratory Results: Labs- Last Values WBC 4.1 10^3/uL (4.0-10.5) 08/31/18 11:20 RBC 3.73 10^6/uL (3.72-5.28) 08/31/18 11:20 Hgb 11.9 g/dL (12.0-15.5) L 08/31/18 11:20 Hct 34.1 % (36.0-47.0) L 08/31/18 11:20 MCV 91 fl (80-97) 08/31/18 11:20 MCH 31.8 pg (27.0-33.4) 08/31/18 11:20 MCHC 34.9 g/dL (32.0-36.0) 08/31/18 11:20 RDW 13.3 % (11.5-14.0) 08/31/18 11:20 Plt Count 218 10^3/uL (150-450) 08/31/18 11:20 Seg Neutrophils % 58.2 % (42-78) 08/31/18 11:20 Lymphocytes % 23.1 % (13-45) 08/31/18 11:20 Monocytes % 14.9 % (3-13) H 08/31/18 11:20 Eosinophils % 2.6 % (0-6) 08/31/18 11:20 Basophils % 1.2 % (0-2) 08/31/18 11:20 Absolute Neutrophils 2.4 10^3/uL (1.7-8.2) 08/31/18 11:20 Absolute Lymphocytes 0.9 10^3/uL (0.5-4.7) 08/31/18 11:20 Absolute Monocytes 0.6 10^3/uL (0.1-1.4) 08/31/18 11:20 Absolute Eosinophils 0.1 10^3/uL (0.0-0.6) 08/31/18 11:20 Absolute Basophils 0.0 10^3/uL (0.0-0.2) 08/31/18 11:20 D-Dimer 0.47 ug/mL (0.00-0.50) 08/31/18 11:45 Sodium 141.2 mmol/L (137-145) 08/31/18 11:20 Potassium 4.6 mmol/L (3.6-5.0) 08/31/18 11:20 Chloride 105 mmol/L (98-107) 08/31/18 11:20 Carbon Dioxide 26 mmol/L (22-30) 08/31/18 11:20 Anion Gap 10 (5-19) 08/31/18 11:20 BUN 12 mg/dL (7-20) 08/31/18 11:20 Creatinine 0.76 mg/dL (0.52-1.25) 08/31/18 11:20 Est GFR ( Amer) > 60 (>60) 08/31/18 11:20 Est GFR (Non-Af Amer) > 60 (>60) 08/31/18 11:20 Glucose 96 mg/dL (75-110) 08/31/18 11:20 Calcium 9.7 mg/dL (8.4-10.2) 08/31/18 11:20 Total Bilirubin 0.5 mg/dL (0.2-1.3) 08/31/18 11:20 Direct Bilirubin 0.3 mg/dL (0.0-0.4) 08/31/18 11:20 Neonat Total Bilirubin Not Reportable 08/31/18 11:20 Neonat Direct Bilirubin Not Reportable 08/31/18 11:20 Neonat Indirect Bili Not Reportable 08/31/18 11:20 AST 26 U/L (14-36) 08/31/18 11:20 ALT 21 U/L (9-52) 08/31/18 11:20 Alkaline Phosphatase 96 U/L (38-126) 08/31/18 11:20 Total Protein 6.7 g/dL (6.3-8.2) 08/31/18 11:20 Albumin 3.8 g/dL (3.5-5.0) 08/31/18 11:20 Urine Color YELLOW 08/31/18 12:40 Urine Appearance SLIGHTLY-CLOUDY 08/31/18 12:40 Urine pH 5.0 (5.0-9.0) 08/31/18 12:40 Ur Specific [place] 1.005 08/31/18 12:40 Urine Protein NEGATIVE mg/dL (NEGATIVE) 08/31/18 12:40 Urine Glucose (UA) NEGATIVE mg/dL (NEGATIVE) 08/31/18 12:40 Urine Ketones NEGATIVE mg/dL (NEGATIVE) 08/31/18 12:40 Urine Blood NEGATIVE (NEGATIVE) 08/31/18 12:40 Urine Nitrite POSITIVE (NEGATIVE) H 08/31/18 12:40 Urine Bilirubin NEGATIVE (NEGATIVE) 08/31/18 12:40 Urine Urobilinogen NEGATIVE mg/dL (<2.0) 08/31/18 12:40 Ur Leukocyte Esterase LARGE (NEGATIVE) H 08/31/18 12:40 Urine WBC (Auto) 28 /HPF 08/31/18 12:40 Urine RBC (Auto) 2 /HPF 08/31/18 12:40 U Hyaline Cast (Auto) 3 /LPF 08/31/18 12:40 Urine Bacteria (Auto) 2+ /HPF 08/31/18 12:40 Squamous Epi Cells Auto 5 /HPF 08/31/18 12:40 Urine Mucus (Auto) RARE /LPF 08/31/18 12:40 Urine Ascorbic Acid NEGATIVE (NEGATIVE) 08/31/18 12:40 EKG Comments: EKG 08/2018 SR with incomplete right bundle branch block, which was also shown on EKG obtained in 2017. Impressions: Head CT 08/31/18 10:25 IMPRESSION: NORMAL BRAIN CT WITHOUT CONTRAST. EVIDENCE OF ACUTE STROKE: NO. Chest X-Ray 08/31/18 12:31 IMPRESSION: NO ACUTE RADIOGRAPHIC FINDING IN THE CHEST. Assessment & Plan - Diagnosis (1) TIA (transient ischemic attack) Is this a current diagnosis for this admission?: Yes Plan: CT in ED was negative. MRI of the brain, carotid ultrasound and ECHO ordered. Lipid panel to be drawn in AM. Patient given 324 mg PO aspirin in ED and will continue on 81 mg PO aspirin daily. Have also placed patient on lipitor 80 mg PO daily and Lovenox 40 mg subcutaneously Q12H. Telemetry, continuous. MENDs exam and vital signs per protocol. Will reevaluate in AM. Speech not indicated will consult PT/OT (2) COPD (chronic obstructive pulmonary disease) Is this a current diagnosis for this admission?: Yes Plan: Stable. Continue to monitor. (3) Hypothyroid Plan: Will obtain TSH. (4) Tobacco dependence Is this a current diagnosis for this admission?: Yes Plan: Educate patient on smoking cessation. (5) Incomplete right bundle branch block Is this a current diagnosis for this admission?: Yes Plan: Incomplete right BBB event on EKG obtained in 2017, as well as this admission. Patient is on telemetry. - Time Time Spent with patient: Time spent with patient including review of chart, patient assessment and interview and formulation of plan was 45 mins. Anticipated discharge: Home Within: within 24 hours - Inpatient Certification Based on my medical assessment, after consideration of the patient's comorbidities, presenting symptoms, or acuity I expect that the services needed warrant INPATIENT care.: No
[2018-08-31] MEDS ORDERED: ZOLPIDEM TARTRATE 5 MG TABLET PO PRN (20:42)
[2018-08-31] MEDS ORDERED: ATORVASTATIN CALCIUM 80 MG TABLET PO SCH (22:00)
[2018-09-01 06:21] LABS: CHOLESTEROL 139.09 mg/dL (0-200); TRIGLYCERIDES 77 mg/dL (<150)
[2018-09-01 06:32] LABS: DIRECT LDL 93 mg/dL (<100)
[2018-09-01] MEDS ORDERED: ENOXAPARIN SODIUM INJ 40 MG/0.4 ML DISP.SYRIN SUBCUT SCH (10:00)
[2018-09-01] MEDS ORDERED: ASPIRIN 81 MG TABLET, CHEWABLE PO SCH (10:00)
[2018-09-01 13:20] VITALS: BP 92/50
--- NOTE | 2018-09-01 14:11 | XCELERA REPORT ---
[address] [address] Transthoracic Echocardiogram Report Name: RAY MAYO V Age: 53 yrs Gender: Female : 1965 Patient Status: Inpatient Patient Location: [facility]A Study Date: 08/31/2018 06:17 PM Height: 60 in Weight: 97 lb BSA: 1.4 m2 Procedure: A two-dimensional transthoracic echocardiogram with color flow and Doppler was performed. The study was technically difficult with many images being suboptimal in quality. Reason For Study: TIA History: TIA. Ordering Physician: FARTUN HOSKINS Performed By: Reshma Hogan Interpretation Summary There is no obvious cardiac source of embolus noted on this transthoracic echocardiogram. Follow-up with a [facility] is suggested if cardiac source is still suspected. LV EF is 65% Doppler measurements suggest normal left ventricular diastolic function The left ventricular wall motion is normal. There is no thrombus. The left atrial size is normal. There is no evidence of mitral valve prolapse. There is no vegetation seen on the mitral valve. There is no mitral valve stenosis. There is a trace amount of mitral regurgitation There is no aortic valve stenosis There is no LVOT obstruction. No aortic regurgitation is present. There is no tricuspid stenosis. There is a trace to mild amount of tricuspid regurgitation nO SIGNIIFICANT PULMONARY HYPERTENSION.rvsp IS 33 MM OF hG , WITH ra MEAN OF 10. There is no pericardial effusion. There is no obvious cardiac source of embolus noted on this transthoracic echocardiogram. Follow-up with a HARRIET is suggested if cardiac source is still suspected MMode/2D Measurements & Calculations RVDd: 2.2 cm LVIDd: 3.9 cm FS: 37.3 % Ao root diam: 2.4 cm IVSd: 0.77 cm LVIDs: 2.4 cm EDV(Teich): 65.1 ml Ao root area: 4.5 cm2 LVPWd: 0.68 cm ESV(Teich): 20.9 ml LA dimension: 2.7 cm EF(Teich): 67.9 % Doppler Measurements & Calculations MV E max abimael: MV P1/2t max abimael: Ao V2 max: LV V1 max P.3 cm/sec 147.7 cm/sec 119.9 cm/sec 2.6 mmHg MV A max abimael: MV P1/2t: 66.0 msec Ao max PG: LV V1 max: 60.2 cm/sec MVA(P1/2t): 3.3 cm2 5.7 mmHg 80.9 cm/sec MV E/A: 1.5 MV dec slope: 655.4 cm/sec2 MV dec time: 0.18 sec TV V2 max: PA V2 max: 85.5 cm/secTR max abimael: MV P1/2t-pr_phl: 89.6 cm/sec PA max P.9 mmHg 237.8 cm/sec 66.0 msec TV max PG: TR max P.2 mmHg 22.6 mmHg Left Ventricle The left ventricle is normal in size. There is normal left ventricular wall thickness. Left ventricular systolic function is normal. LV EF is 65%. Doppler measurements suggest normal left ventricular diastolic function. The left ventricular wall motion is normal. There is no thrombus. There is no ventricular septal defect visualized. Right Ventricle The right ventricle is not well visualized secondary to technical limitations. Atria The right atrium is normal. The left atrial size is normal. There is no Doppler evidence for an interatrial shunt. Mitral Valve There is no evidence of mitral valve prolapse. There is no vegetation seen on the mitral valve. There is no mitral valve stenosis. There is a trace amount of mitral regurgitation. Aortic Valve There is no aortic valvular vegetation. There is no aortic valve stenosis. There is no LVOT obstruction. No aortic regurgitation is present. Tricuspid Valve There is no tricuspid stenosis. There is a trace to mild amount of tricuspid regurgitation. nO SIGNIIFICANT PULMONARY HYPERTENSION.rvsp IS 33 MM OF hG , WITH ra MEAN OF 10. Pulmonic Valve The pulmonic valve is not well visualized. Great Vessels The aortic root is normal size. Effusions There is no pericardial effusion. : FARTUN HOSKINS > Francia Herrera
--- NOTE | 2018-09-01 14:13 | RADIOLOGY REPORT (SQ) ---
EXAM DESCRIPTION: CAROTID DOPPLER COMPLETED DATE/TIME: 08/31/2018 7:55 pm REASON FOR STUDY: TIA COMPARISON: None. TECHNIQUE: Grayscale ultrasound, Doppler velocity and spectra, and color Doppler images acquired of the extra-cranial carotid and vertebral arteries. Images stored on PACS. LIMITATIONS: None. FINDINGS: RIGHT CAROTID CCA Velocities: The proximal common carotid artery demonstrates elevated velocity measuring 141 centi meters/second. ICA Velocities Peak systolic 123 cm/s. End diastolic 44 cm/s. Proximal ICA/CCA peak systolic ratio 1.0. Soft plaque is demonstrated at the bulb and proximal internal and external carotid arteries. Normal waveforms. LEFT CAROTID CCA Velocities: Within normal limits. ICA Velocities Peak systolic 133 cm/s. End diastolic 39 cm/s. Proximal ICA/CCA peak systolic ratio 1.3. Soft plaque is demonstrated at the bulb and proximal internal and external carotid arteries. Normal waveforms. VERTEBRAL ARTERIES: Antegrade flow. Normal waveforms. SUBCLAVIAN ARTERIES: No finding. OTHER: No other significant finding. IMPRESSION: Hemodynamically significant plaque resulting in elevated right common carotid and left i nternal carotid artery velocities. The left internal carotid artery velocity is consistent with 50 t o 69% stenosis. COMMENT: Quality ID #[id number]: Velocity criteria are extrapolated from the diameter data as defined by [employer] in Ultrasound Consensus Conference. Radiology 2003: 229; 340-346. TECHNICAL DOCUMENTATION: JOB ID: [id number] [employer]- All Rights Reserved Reading location - IP/workstation name: [email or web address]
--- NOTE | 2018-09-01 16:42 | PDOC DISCHARGE SUMMARY ---
General - Admit/Disc Date/PCP Admission Date/Primary Care Provider: 08/31/18 12:47 Discharge Date: 09/01/18 - Discharge Diagnosis (1) TIA (transient ischemic attack) Is this a current diagnosis for this admission?: Yes Summary: CT, MRI and ECHO showed no acute findings. Carotid dopplers completed and showed 50-69% stenosis. Patient educated on results. Encouraged to stop smoking. Patient educated on new home medications: Aspirin 81 mg PO daily and Lipitor 80 mg PO QHS. Patient was made aware that she should follow up with her PCP within 1-2 weeks and have her carotids checked again within 1 year. (2) COPD (chronic obstructive pulmonary disease) Is this a current diagnosis for this admission?: Yes Summary: Patient did not require any intervention for COPD during this hospital stay. Stable, continue home management. (3) Hypothyroid Is this a current diagnosis for this admission?: Yes Summary: Stable, continue home regimen. (4) Tobacco dependence Is this a current diagnosis for this admission?: Yes Summary: Strongly encouraged patient to stop smoking. Patient verbalized that she was recently prescribed Wellbutrin to aid in cessation. Spent 3 minutes discussing smoking cessation education. The patient declines further pharmacological intervention. (5) Incomplete right bundle branch block Is this a current diagnosis for this admission?: Yes Summary: Stable. - Additional Information Resuscitation Status: Full Code Discharge Diet: As Tolerated Discharge Activity: Activity As Tolerated Prescriptions: Aspirin [Aspirin 81 mg Chewable Tablet] 81 mg PO DAILY #30 tab.chew Atorvastatin Calcium [Lipitor 80 mg Tablet] 80 mg PO QHS #30 tablet Home Medications: Zolpidem Tartrate [Ambien] 10 mg PO QHS 08/31/18 Aspirin [Aspirin 81 mg Chewable Tablet] 81 mg PO DAILY #30 tab.chew 09/01/18 Atorvastatin Calcium [Lipitor 80 mg Tablet] 80 mg PO QHS #30 tablet 09/01/18 History of Present Illness History of Present Illness: RAY MAYO is a 53 year old female with a past medical history of COPD and tobacco use less than 1 ppd for a 35 year history. The patient stated that she was in her usual state of health until approximately 0900 when she was at work, begin her medication pass. The patient stated that she noted that the left side of her face begin to tingling and then went numb. She also noted that her left arm began tingling and felt numb, as well. The patient was brought to the ED where all symptoms had subsided. The patient denied any fever, chills, shortness of breath, chest pain, heart palpitations, nausea, vomiting or diarrhea. Patient stated that she felt dizzy, as if she were going to faint. The patient stated that she had a doctor's appointment for her yearly wellness check, that labs were drawn and reported back as "normal" and that he provider started her back on her Wellbutrin and began a multivitamin. In the ED, a head CT without contrast was obtained, which was negative. An EKG was obtained and showed a sinus rhythm with incomplete right bundle branch block , which also showed on an EKG obtained in 2017. 324 mg PO aspirin given. Patient was also given 1L NS bolus. Patient's case was referred to the hospitalist service for further workup and evaluation. Patient will be placed under observations status. Hospital Course Hospital Course: During this hospitalization the patient recived a CT, MRI, ECHO and carotid US. Imagining was negative with the exception of her carotid dopplers. Patient was made aware of this information and encouraged to follow up with her PCP and stop smoking. The patient was started on antiplatelet therapy, as well as a high dose statin. The patient's labs and vital signs were acceptable throughout her stay. PT and OT were also ordered for this patient; however, the patient declined being seen by these therapies. Patient was discharged home in stable condition and was told to follow up with her PCP in 1-2 weeks, stop smoking and follow up on her carotid doppler within 1 year. Physical Exam Vital Signs: Temp Pulse Resp BP Pulse Ox 98.6 F 59 L 14 92/50 L 95 09/01/18 14:42 09/01/18 14:42 09/01/18 14:42 09/01/18 14:42 09/01/18 14:42 Intake & Output 08/30/18 08/31/18 09/01/18 23:59 23:59 23:59 Intake Total 675 1100 Output Total 200 Balance 675 900 Weight 46.4 kg General appearance: PRESENT: no acute distress, thin Head exam: PRESENT: atraumatic, normocephalic Eye exam: PRESENT: conjunctiva pink, EOMI, PERRLA Ear exam: PRESENT: normal external ear exam Mouth exam: PRESENT: neck supple Teeth exam: PRESENT: other - Dentition in good repair. Neck exam: PRESENT: full ROM Respiratory exam: PRESENT: clear to auscultation melania, symmetrical Cardiovascular exam: PRESENT: RRR, +S1, +S2 Pulses: PRESENT: normal radial pulses, +2 pedal pulses bilateral Vascular exam: PRESENT: normal capillary refill GI/Abdominal exam: PRESENT: normal bowel sounds, soft Rectal exam: PRESENT: deferred Extremities exam: PRESENT: full ROM Musculoskeletal exam: PRESENT: full ROM Neurological exam: PRESENT: alert, awake, oriented to person, oriented to place , oriented to time, oriented to situation Psychiatric exam: PRESENT: appropriate affect, normal mood Skin exam: PRESENT: dry, warm Additional comments: Complete resolution of presenting symptoms noted. Results Laboratory Results: 09/01/18 04:52 Triglycerides 77 Cholesterol 139.09 LDL Cholesterol Direct 93 VLDL Cholesterol 15.0 HDL Cholesterol 42 Labs- Last Values WBC 4.1 10^3/uL (4.0-10.5) 08/31/18 11:20 RBC 3.73 10^6/uL (3.72-5.28) 08/31/18 11:20 Hgb 11.9 g/dL (12.0-15.5) L 08/31/18 11:20 Hct 34.1 % (36.0-47.0) L 08/31/18 11:20 MCV 91 fl (80-97) 08/31/18 11:20 MCH 31.8 pg (27.0-33.4) 08/31/18 11:20 MCHC 34.9 g/dL (32.0-36.0) 08/31/18 11:20 RDW 13.3 % (11.5-14.0) 08/31/18 11:20 Plt Count 218 10^3/uL (150-450) 08/31/18 11:20 Seg Neutrophils % 58.2 % (42-78) 08/31/18 11:20 Lymphocytes % 23.1 % (13-45) 08/31/18 11:20 Monocytes % 14.9 % (3-13) H 08/31/18 11:20 Eosinophils % 2.6 % (0-6) 08/31/18 11:20 Basophils % 1.2 % (0-2) 08/31/18 11:20 Absolute Neutrophils 2.4 10^3/uL (1.7-8.2) 08/31/18 11:20 Absolute Lymphocytes 0.9 10^3/uL (0.5-4.7) 08/31/18 11:20 Absolute Monocytes 0.6 10^3/uL (0.1-1.4) 08/31/18 11:20 Absolute Eosinophils 0.1 10^3/uL (0.0-0.6) 08/31/18 11:20 Absolute Basophils 0.0 10^3/uL (0.0-0.2) 08/31/18 11:20 D-Dimer 0.47 ug/mL (0.00-0.50) 08/31/18 11:45 Sodium 141.2 mmol/L (137-145) 08/31/18 11:20 Potassium 4.6 mmol/L (3.6-5.0) 08/31/18 11:20 Chloride 105 mmol/L (98-107) 08/31/18 11:20 Carbon Dioxide 26 mmol/L (22-30) 08/31/18 11:20 Anion Gap 10 (5-19) 08/31/18 11:20 BUN 12 mg/dL (7-20) 08/31/18 11:20 Creatinine 0.76 mg/dL (0.52-1.25) 08/31/18 11:20 Est GFR ( Amer) > 60 (>60) 08/31/18 11:20 Est GFR (Non-Af Amer) > 60 (>60) 08/31/18 11:20 Glucose 96 mg/dL (75-110) 08/31/18 11:20 Calcium 9.7 mg/dL (8.4-10.2) 08/31/18 11:20 Total Bilirubin 0.5 mg/dL (0.2-1.3) 08/31/18 11:20 Direct Bilirubin 0.3 mg/dL (0.0-0.4) 08/31/18 11:20 Neonat Total Bilirubin Not Reportable 08/31/18 11:20 Neonat Direct Bilirubin Not Reportable 08/31/18 11:20 Neonat Indirect Bili Not Reportable 08/31/18 11:20 AST 26 U/L (14-36) 08/31/18 11:20 ALT 21 U/L (9-52) 08/31/18 11:20 Alkaline Phosphatase 96 U/L (38-126) 08/31/18 11:20 Total Protein 6.7 g/dL (6.3-8.2) 08/31/18 11:20 Albumin 3.8 g/dL (3.5-5.0) 08/31/18 11:20 Triglycerides 77 mg/dL (<150) 09/01/18 04:52 Cholesterol 139.09 mg/dL (0-200) 09/01/18 04:52 LDL Cholesterol Direct 93 mg/dL (<100) 09/01/18 04:52 VLDL Cholesterol 15.0 mg/dL (10-31) 09/01/18 04:52 HDL Cholesterol 42 mg/dL (>40) 09/01/18 04:52 TSH 4.46 uIU/mL (0.47-4.68) 08/31/18 11:20 Urine Color YELLOW 08/31/18 12:40 Urine Appearance SLIGHTLY-CLOUDY 08/31/18 12:40 Urine pH 5.0 (5.0-9.0) 08/31/18 12:40 Ur Specific [place] 1.005 08/31/18 12:40 Urine Protein NEGATIVE mg/dL (NEGATIVE) 08/31/18 12:40 Urine Glucose (UA) NEGATIVE mg/dL (NEGATIVE) 08/31/18 12:40 Urine Ketones NEGATIVE mg/dL (NEGATIVE) 08/31/18 12:40 Urine Blood NEGATIVE (NEGATIVE) 08/31/18 12:40 Urine Nitrite POSITIVE (NEGATIVE) H 08/31/18 12:40 Urine Bilirubin NEGATIVE (NEGATIVE) 08/31/18 12:40 Urine Urobilinogen NEGATIVE mg/dL (<2.0) 08/31/18 12:40 Ur Leukocyte Esterase LARGE (NEGATIVE) H 08/31/18 12:40 Urine WBC (Auto) 28 /HPF 08/31/18 12:40 Urine RBC (Auto) 2 /HPF 08/31/18 12:40 U Hyaline Cast (Auto) 3 /LPF 08/31/18 12:40 Urine Bacteria (Auto) 2+ /HPF 08/31/18 12:40 Squamous Epi Cells Auto 5 /HPF 08/31/18 12:40 Urine Mucus (Auto) RARE /LPF 08/31/18 12:40 Urine Ascorbic Acid NEGATIVE (NEGATIVE) 08/31/18 12:40 Impressions: Carotid Doppler Study 08/31/18 00:00 IMPRESSION: Hemodynamically significant plaque resulting in elevated right common carotid and left internal carotid artery velocities. The left internal carotid artery velocity is consistent with 50 to 69% stenosis. Head MRI 08/31/18 00:00 IMPRESSION: Unremarkable unenhanced MRI brain copyright 2011 [employer]- All Rights Reserved Head CT 08/31/18 10:25 IMPRESSION: NORMAL BRAIN CT WITHOUT CONTRAST. EVIDENCE OF ACUTE STROKE: NO. Chest X-Ray 08/31/18 12:31 IMPRESSION: NO ACUTE RADIOGRAPHIC FINDING IN THE CHEST. Qualifiers - * PATIENT BEING DISCHARGED WITH ANY OF THE FOLLOWING DIAGNOSIS: No Plan Discharge Plan: The patient is to followup with their primary care provider, Dr. Hill, within one week for hospital followup regarding TIA and to follow-up carotid stenosis within the year. Time Spent: Less than 30 Minutes
--- NOTE | 2018-09-02 17:06 | DISCHARGE SUMMARY E ---
Discharge Summary NAME: RAY MAYO : 1965 AGE: 53Y ADMITTED: 08/31/2018 DISCHARGED: 09/01/2018 FINAL DIAGNOSIS: DICTATING PHYSICIAN: FARTUN HOSKINS NP [id number] PHY#: [id number] ID: [id number] JOB#: [id number] ACCT: [id number] cc:Cherry REIS NP >
== END 2018-09-01 15:05 | disposition home or self-care (01) ==
LOC: ER 10:01 → EH 12:47 → INTOOBSV 12:47 → 3N 13:45
PROVIDERS: ADMIT Emergency Medicine; ATTEND Emergency Medicine
DX: G45.9 Transient cerebral ischemic attack, unspecified (principal); J44.9 Chronic obstructive pulmonary disease, unspecified; E03.9 Hypothyroidism, unspecified; F17.210 Nicotine dependence, cigarettes, uncomplicated; I45.10 Unspecified right bundle-branch block; R45.1 Restlessness and agitation; F41.9 Anxiety disorder, unspecified; H55.09 Other forms of nystagmus; K02.9 Dental caries, unspecified; Z82.3 Family history of stroke; Z82.49 Family history of ischemic heart disease and other diseases of the circulatory system
CPT/HCPCS: 93005; 99291; 96360; 36415 ×2; 84443; 85025; 80053; 81001; 85379; 80061; 93306; 93880; 70551; 71046; 70450; 93010; G0378 ×2; J3490 ×2; J7030

== ENCOUNTER 2019-06-08 17:53 | Emergency (ER) | payer SELFPAY ==
--- NOTE | 2019-06-08 20:03 | ER Document Report ---
ED Medical Screen (RME) - General Chief Complaint: Chest Pain Stated Complaint: CHEST PAIN Time Seen by Provider: 06/08/19 19:57 Mode of Arrival: Ambulatory Information source: Patient Notes: 53-year-old female presents to ED for weight For a cough at 5 PM today. She states she works nights. [facility] and they put her on antibiotics some cough Tessalon Perles and a nebulizer. States that they thought she might have some crackles but they did have a chest x-ray. She stated when she woke up she was coughing and was very painful to breathe so she decided to come to emergency room get x-ray. She has been started on doxycycline today. She does have a history of COPD and carotid artery blockage. She states she had a TIA recently from this block her carotid artery. She states she smokes 15 cigarettes a day drinks monthly does not do drugs and is a nurse at [employer]. She lives with her significant other. She states she has not had any fevers. States she has been coughing off and on for 3 weeks. Patient is alert and oriented respirations regular and unlabored she is coughing while in the emergency room. I have greeted and performed a rapid initial assessment of this patient. A comprehensive ED assessment and evaluation of the patient, analysis of test results and completion of medical decision making process will be conducted by an additional ED providers. TRAVEL OUTSIDE OF THE [place] IN LAST 30 DAYS: No - Related Data Allergies/Adverse Reactions: No Known Allergies Allergy (Verified 08/31/18 10:03) Past Medical History - Social History Frequency of alcohol use: Rare Drug Abuse: None - Past Medical History Cardiac Medical History: Denies: Hx Coronary Artery Disease, Hx Hypertension Pulmonary Medical History: Reports: Hx COPD, Hx Pneumonia Denies: Hx Asthma Endocrine Medical History: Reports: Hx Hypothyroidism. Denies: Hx Diabetes Mellitus Type 1, Hx Diabetes Mellitus Type 2 Renal/ Medical History: Denies: Hx Peritoneal Dialysis Psychiatric Medical History: Denies: Hx Depression Past Surgical History: Reports: Hx Tubal Ligation - Immunizations Hx Diphtheria, Pertussis, Tetanus Vaccination: Yes History of Influenza Vaccine for 07/2017 - 11/2017 Season: No Physical Exam - Vital signs Vitals: Temp Pulse Resp BP Pulse Ox 99.1 F 88 18 99/59 L 96 06/08/19 18:05 06/08/19 18:05 06/08/19 18:05 06/08/19 18:05 06/08/19 18:05 Course - Vital Signs Vital signs: Temp Pulse Resp BP Pulse Ox 99.1 F 88 18 99/59 L 96 06/08/19 18:05 06/08/19 18:05 06/08/19 18:05 06/08/19 18:05 06/08/19 18:05
[2019-06-08 20:31] LABS: ABSOLUTE LYMPHOCYTES (AUTO) 1.2 10^3/uL (0.5-4.7); ABSOLUTE MONOCYTES (AUTO) 0.7 10^3/uL (0.1-1.4); ABSOLUTE NEUT (AUTO) 6.4 10^3/uL (1.7-8.2); BASOPHILS % (AUTO) 0.4 % (0-2); EOSINOPHILS % (AUTO) 0.3 % (0-6); HEMATOCRIT 33.3 % (36.0-47.0); HEMOGLOBIN 11.3 g/dL (12.0-15.5); LYMPHOCYTES % (AUTO) 14.9 % (13-45); MEAN CORPUSCULAR HEMOGLOBIN 31.1 pg (27.0-33.4); MEAN CORPUSCULAR HGB CONC 33.9 g/dL (32.0-36.0); MEAN CORPUSCULAR VOLUME 92 fl (80-97); MONOCYTES % (AUTO) 7.8 % (3-13); PLATELET COUNT 240 10^3/uL (150-450); RED BLOOD COUNT 3.63 10^6/uL (3.72-5.28); RED CELL DISTRIBUTION WIDTH 13.2 % (11.5-14.0); SEGMENTED NEUTROPHILS % (AUTO) 76.6 % (42-78); TOTAL CELLS COUNTED % (AUTO) 100 %; WHITE BLOOD COUNT 8.4 10^3/uL (4.0-10.5)
[2019-06-08 20:51] LABS: ALBUMIN 3.7 g/dL (3.5-5.0); ALKALINE PHOSPHATASE 184 U/L (38-126); ANION GAP 9 (5-19); ASPARTATE AMINO TRANSFERASE 28 U/L (14-36); BILIRUBIN,DIRECT 0.2 mg/dL (0.0-0.4); BILIRUBIN,TOTAL 0.3 mg/dL (0.2-1.3); BLOOD UREA NITROGEN 8 mg/dL (7-20); CALCIUM 9.5 mg/dL (8.4-10.2); CARBON DIOXIDE 25 mmol/L (22-30); CHLORIDE 104 mmol/L (98-107); GLUCOSE 107 mg/dL (75-110); POTASSIUM 4.1 mmol/L (3.6-5.0); TOTAL PROTEIN 6.5 g/dL (6.3-8.2)
--- NOTE | 2019-06-08 21:31 | RADIOLOGY REPORT (SQ) ---
EXAM DESCRIPTION: XR CHEST 2 VIEWS COMPLETED DATE/TME: 06/08/2019 19:57 CLINICAL HISTORY: 53 years, Female, chest pain hurts to breath COMPARISON: 08/31/2018 chest NUMBER OF VIEWS: 2 TECHNIQUE: 2 view chest LIMITATIONS: None. FINDINGS: Heart size is normal. Osteopenia. COPD. Airspace opacities project over the right middle lobe, lingula, and minimally in the lung bases bilaterally. Underlying COPD. Findings likely represent pneumonia, however a somewhat nodular component is noted on the left and short-term follow-up is recommended following appropriate therapy to ensure resolution. IMPRESSION: Underlying COPD with airspace opacities bilaterally likely reflecting pneumonia. However, recommend follow-up following appropriate therapy to ensure resolution copyright 2011 [employer]- All Rights Reserved
[2019-06-08] MEDS ORDERED: ONDANSETRON HCL INJ/PF 4 MG/2 ML SDV IV ONE (22:52)
[2019-06-08] MEDS ORDERED: FENTANYL CITRATE INJ/PF 100 MCG/2 ML AMPUL IV ONE (22:52)
[2019-06-08] MEDS ORDERED: IPRATROPIUM/ALBUTEROL 0.5-2.5 MG/3 ML AMPUL NEB ONE (22:55)
[2019-06-08] MEDS ORDERED: KETOROLAC TROMETHAMINE INJ/PF 30 MG/1 ML SDV IV ONE (22:55)
--- NOTE | 2019-06-08 22:56 | ER Document Report ---
ED General - General Chief Complaint: Chest Pain Stated Complaint: CHEST PAIN Time Seen by Provider: 06/08/19 19:57 Primary Care Provider: KIMBERLEY KATZ PA-C [Primary Care Provider] - Follow up as needed Mode of Arrival: Ambulatory Information source: Patient, [facility] Records Notes: 53-year-old female with COPD, coronary artery disease, hypertension, hyperlipidemia with recent diagnosis of pneumonia presents with complaint of left-sided chest pain that started 6 hours prior to my exam. Patient describes the pain as sharp, intermittent and worse with coughing. Patient reports a productive cough for approximately 3 weeks. She saw her primary care physician today and was started on doxycycline, Tessalon Perles and Ventolin. She states that when she awoke from her nap she noted the left-sided chest pain. Patient does continue to smoke. She denies previous history of ME. TRAVEL OUTSIDE OF THE [place] IN LAST 30 DAYS: No - HPI Onset: This afternoon Onset/Duration: Sudden, Intermittent, Better Quality of pain: Sharp Severity: Moderate Pain Level: 2 Associated symptoms: Body/muscle aches, Chest pain, Chills, Productive cough, Hurts to breath, Shortness of breath. denies: Fever, Leg swelling, Nausea, Vomiting Exacerbated by: Coughing Relieved by: Denies Similar symptoms previously: Yes Recently seen / treated by doctor: Yes - Related Data Allergies/Adverse Reactions: No Known Allergies Allergy (Verified 06/08/19 22:28) Past Medical History - General Information source: Patient - Social History Smoking Status: Current Every Day Smoker Cigarette use (# per day): Yes - 15 Smoking Education Provided: Yes - Smoking cessation counseling was provided for 4 minutes at the bedside Frequency of alcohol use: Rare Drug Abuse: None Lives with: Spouse/Significant other Family History: Reviewed & Not Pertinent Patient has suicidal ideation: No Patient has homicidal ideation: No - Past Medical History Cardiac Medical History: Reports: Hx Hypercholesterolemia - partial blockage of left carotid Denies: Hx Coronary Artery Disease, Hx Hypertension Pulmonary Medical History: Reports: Hx COPD, Hx Pneumonia Denies: Hx Asthma Endocrine Medical History: Reports: Hx Hypothyroidism. Denies: Hx Diabetes Mellitus Type 1, Hx Diabetes Mellitus Type 2 Renal/ Medical History: Denies: Hx Peritoneal Dialysis Psychiatric Medical History: Denies: Hx Depression Past Surgical History: Reports: Hx Tubal Ligation - Immunizations Hx Diphtheria, Pertussis, Tetanus Vaccination: Yes Review of Systems - Review of Systems Notes: REVIEW OF SYSTEMS: CONSTITUTIONAL : Denies fever, chills, or sweats. Denies recent illness. Denies weight loss, recent hospitalizations. EENT: Denies visual changes, eye pain. Denies sore throat, oral lesions, difficulty swallowing. CARDIOVASCULAR: + chest pain. Denies palpitations. Denies lower extremity edema. RESPIRATORY: + cough. + shortness of breath, wheezing. GASTROINTESTINAL: Denies abdominal pain or distention. Denies nausea, vomiting, or diarrhea. Denies blood in vomitus, stools, or per rectum. Denies black, tarry stools. Denies constipation. GENITOURINARY: Denies difficulty urinating, painful urination, frequency, blood in urine, or vaginal discharge. MUSCULOSKELETAL: Denies back or neck pain or stiffness. Denies joint pain or swelling. SKIN: Denies rash, lesions or sores. HEMATOLOGIC : Denies easy bruising or bleeding. LYMPHATIC: Denies swollen glands. NEUROLOGICAL: Denies confusion or altered mental status. Denies loss of consciousness. Denies dizziness or lightheadedness. Denies headache. Denies weakness or paralysis. Denies problems difficulty with ambulation, slurred speech. Denies sensory loss, numbness, or tingling. Denies seizures. PSYCHIATRIC: Denies anxiety or stress. Denies depression, suicidal ideation, or homicidal ideation. Denies visual or auditory hallucinations. Physical Exam - Vital signs Vitals: Temp Pulse Resp BP Pulse Ox 99.1 F 88 18 99/59 L 96 06/08/19 18:05 06/08/19 18:05 06/08/19 18:05 06/08/19 18:05 06/08/19 18:05 - Notes Notes: PHYSICAL EXAMINATION: GENERAL: Well-appearing, well-nourished and in no acute distress. HEAD: Atraumatic, normocephalic. EYES: Pupils equal round and reactive to light, extraocular movements intact, conjunctiva are normal. ENT: Nares patent, oropharynx clear without exudates. Moist mucous membranes. NECK: Normal range of motion, supple without lymphadenopathy LUNGS: Breath sounds clear to auscultation bilaterally and equal. No wheezes rales or rhonchi. HEART: Regular rate and rhythm without murmurs ABDOMEN: Soft, nontender, nondistended abdomen. No guarding, no rebound. No masses appreciated. Female : deferred Musculoskeletal: Normal range of motion, no pitting or edema. No cyanosis. NEUROLOGICAL: Cranial nerves grossly intact. Normal speech, normal gait. Normal sensory, motor exams PSYCH: Normal mood, normal affect. SKIN: Warm, Dry, normal turgor, no rashes or lesions noted. Course - Re-evaluation Re-evalutation: 06/09/19 02:27 Laboratory 06/08/19 06/08/19 06/08/19 20:13 20:13 20:13 WBC 8.4 RBC 3.63 L Hgb 11.3 L Hct 33.3 L MCV 92 MCH 31.1 MCHC 33.9 RDW 13.2 Plt Count 240 Lymph % (Auto) 14.9 [place] % (Auto) 7.8 Eos % (Auto) 0.3 Baso % (Auto) 0.4 Absolute Neuts (auto) 6.4 Absolute Lymphs (auto) 1.2 Absolute Monos (auto) 0.7 Absolute Eos (auto) 0.0 Absolute Basos (auto) 0.0 Seg Neutrophils % 76.6 Sodium 137.7 Potassium 4.1 Chloride 104 Carbon Dioxide 25 Anion Gap 9 BUN 8 Creatinine 0.82 Est GFR ( Amer) > 60 Est GFR (MDRD) Non-Af > 60 Glucose 107 Calcium 9.5 Total Bilirubin 0.3 Direct Bilirubin 0.2 Neonat Total Bilirubin Not Reportable Neonat Direct Bilirubin Not Reportable Neonat Indirect Bili Not Reportable AST 28 ALT 24 Alkaline Phosphatase 184 H Troponin I < 0.012 Total Protein 6.5 Albumin 3.7 06/08/19 23:05 WBC RBC Hgb Hct MCV MCH MCHC RDW Plt Count Lymph % (Auto) [place] % (Auto) Eos % (Auto) Baso % (Auto) Absolute Neuts (auto) Absolute Lymphs (auto) Absolute Monos (auto) Absolute Eos (auto) Absolute Basos (auto) Seg Neutrophils % Sodium Potassium Chloride Carbon Dioxide Anion Gap BUN Creatinine Est GFR ( Amer) Est GFR (MDRD) Non-Af Glucose Calcium Total Bilirubin Direct Bilirubin Neonat Total Bilirubin Neonat Direct Bilirubin Neonat Indirect Bili AST ALT Alkaline Phosphatase Troponin I < 0.012 Total Protein Albumin Chest X-Ray 06/08/19 19:57 IMPRESSION: Underlying COPD with airspace opacities bilaterally likely reflecting pneumonia. However, recommend follow-up following appropriate therapy to ensure resolution copyright 2011 [employer]- All Rights Reserved Temp Pulse Resp BP Pulse Ox 97.1 F 88 20 96/52 L 92 06/09/19 00:28 06/08/19 18:05 06/09/19 00:01 06/08/19 23:46 06/09/19 00:01 Presentation of chest pain in an otherwise well appearing patient. Low clinical suspicion for ACS given clinical history, exam, EKG without ST elevations or depressions, and negative initial troponin. HEART score less than or equal to 3. PE also seems unlikely given clinical history, absence of tachycardia or dyspnea. Patient is PERC criteria negative. CXR without evidence of pneumothorax or pneumonia. No widened mediastinum. Aortic dissection also seems unlikely given history, symmetric pulses, CXR, and vitals. HEART Score: History-0 ECG-1 Age-1 Risk Factors-1 Troponin-0 Total: 3 Chest pain in a patient without evidence of cardiac or other serious etiology on workup today. I discussed with patient that, based on their age, risk factors and emergency department testing today, the likelihood that their symptoms are related to a heart attack is very low (estimated risk of heart attack or over the next 30 days of less than 1%). The patient demonstrates decision making capacity and has verbalized an understanding of these risks to me. Based on this, the patient has chosen to follow-up as an outpatient. Usual chest pain return precautions reviewed. The patient states understanding and agreement with this plan. - Vital Signs Vital signs: Temp Pulse Resp BP Pulse Ox 97.1 F 88 20 96/52 L 92 06/09/19 00:28 06/08/19 18:05 06/09/19 00:01 06/08/19 23:46 06/09/19 00:01 - Laboratory Result Diagrams: 06/08/19 20:13 06/08/19 20:13 Laboratory results interpreted by me: 06/08/19 06/08/19 20:13 20:13 RBC 3.63 L Hgb 11.3 L Hct 33.3 L Alkaline Phosphatase 184 H - Diagnostic Test Radiology reviewed: Image reviewed, Reports reviewed - EKG Interpretation by Me EKG shows normal: Sinus rhythm Rate: Normal Rhythm: NSR [place]/QRS: LPHB/LPFB When compared to previous EKG there are: No significant change Discharge - Discharge Clinical Impression: COPD (chronic obstructive pulmonary disease) Qualifiers: COPD type: unspecified COPD Qualified Code(s): J44.9 - Chronic obstructive pulmonary disease, unspecified Bilateral pneumonia Qualifiers: Pneumonia type: due to unspecified organism Lung location: unspecified part of lung Qualified Code(s): J18.9 - Pneumonia, unspecified organism Chest pain Qualifiers: Chest pain type: unspecified Qualified Code(s): R07.9 - Chest pain, unspecified Condition: Good Disposition: HOME, SELF-CARE Instructions: Chest Wall Pain ([facility]), Chest Pain of Unclear Cause ([facility]), Pneumonia ([facility]) Additional Instructions: You were seen today for chest pain. The exact cause of your pain is unclear. However, based on your cardiac enzyme testing, chest x-ray, and EKG it does not appear that it is from an immediately life-threatening cause at this time. Although your testing here is normal is critical that you follow-up with your primary care physician for continued evaluation of this chest pain and possible stress testing. I recommended you see your physician within the next 24-48 hours to be evaluated for consideration of a stress test. Please return to emergency department immediately if you have worsening of your chest pain, shortness of breath, vomiting, become unable to exert yourself due to pain or difficulty breathing, you pass out, or have any pain that radiates into your arms, jaw, or back. Please also return if you have any additional symptoms that are concerning to you. You have been diagnosed with a pneumonia. It is very important that you take all of your antibiotics until they are gone even if you are feeling better. Please return to the emergency department immediately if you began having worsening shortness of breath, become confused, have worsening pain, pass out, have persistent vomiting that prevents you from being able to drink fluids for more than 12 hours, or have any other symptoms that are worrisome to you. Please follow-up with your primary care doctor in the next 1-2 days. Forms: Smoking Cessation Education, Return to Work Referrals: KIMBERLEY KATZ PA-C [Primary Care Provider] - Follow up as needed
[2019-06-08] MEDS ORDERED: CEFTRIAXONE 1 GM/D5W RTU 1 GM/50 ML RTUPB IV ONE (23:00)
[2019-06-09 00:11] VITALS: BP 96/52
--- NOTE | 2019-06-09 18:31 | EKG REPORT ---
SEVERITY:- ABNORMAL ECG - SINUS RHYTHM INCOMPLETE RIGHT BUNDLE BRANCH BLOCK PROBABLE INFERIOR INFARCT, AGE INDETERMINATE LATERAL LEADS ARE ALSO INVOLVED : Confirmed by: Natalie Azar 09-Jun-2019 18:30:40
--- NOTE | 2019-06-09 18:31 | EKG REPORT ---
SEVERITY:- ABNORMAL ECG - SINUS RHYTHM IRBBB AND LPFB BORDERLINE INFERIOR Q WAVES : Confirmed by: Natalie Azar 09-Jun-2019 18:30:45
== END 2019-06-09 00:28 | disposition home or self-care (01) ==
LOC: ER 17:53
DX: J44.0 Chronic obstructive pulmonary disease with (acute) lower respiratory infection (principal); J18.9 Pneumonia, unspecified organism; R07.1 Chest pain on breathing; R05 Cough; R06.02 Shortness of breath; I44.5 Left posterior fascicular block; I10 Essential (primary) hypertension; F17.210 Nicotine dependence, cigarettes, uncomplicated; Z71.6 Tobacco abuse counseling
CPT/HCPCS: 93005; 36415; 85025; 80053; 84484; 71046; 93010; J3010; J1885; J2405; J7620; 94640; 96374; 96375; 99285; 99406